=== PATIENT | female | born 1975 | race Caucasian/White ===

== ENCOUNTER 2016-12-20 22:54 | Emergency (ER) | payer MEDICAID ==
[2016-12-20] MEDS ORDERED: predniSONE 20 MG Tab PO ONE (23:22)
[2016-12-20] MEDS ORDERED: Acetaminophen/oxyCODONE 325-10 MG Tab PO ONE (23:22)
--- NOTE | 2016-12-20 23:28 | EDM.PDOC ---
ED HPI GENERAL MEDICAL PROBLEM - General Chief Complaint: Upper Extremity Injury/Pain Stated Complaint: PAIN ON RIGHT RIST Time Seen by Provider: 12/20/16 23:00 Source of Information: Reports: Patient - History of Present Illness INITIAL COMMENTS - FREE TEXT/NARRATIVE: she presents with a recent flare of her right wrist pain. She has a history of rheumatoid arthritis. She denies recent trauma She has tolerated prednisone well in the past. 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: 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 History: Reports: RA Neurological History: Reports: None Psychiatric History: Reports: None Endocrine/Metabolic History: Reports: None Hematologic History: Reports: None Immunologic History: Reports: Other (See Below) (rheumatoid arthritis) Oncologic (Cancer) History: Reports: None Dermatologic History: Reports: None - Past Surgical History HEENT Surgical History: Reports: None Cardiovascular Surgical History: Reports: None Respiratory Surgical History: Reports: None GI Surgical History: Reports: None Female Surgical History: Reports: None Endocrine Surgical History: Reports: None 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 Surgical History: Reports: None Social & Family History - Family History Family Medical History: Noncontributory - Tobacco Use Smoking Status *Q: Never Smoker Second Hand Smoke Exposure: No - Caffeine Use Caffeine Use: Reports: Coffee - Alcohol Use Days Per Week of Alcohol Use: 0 - Recreational Drug Use Recreational Drug Use: No Review of Systems - Review of Systems Review Of Systems: See Below Constitutional: Denies: Chills, Fever ED EXAM, GENERAL - Physical Exam Exam: See Below Free Text/Narrative:: alert appears uncomfortable right UE: finger deformities c/w rheumatoid arthritis; pain with motion of the wrist; tenderness of the wrist ; limited wrist. Course - Vital Signs Last Recorded V/S: Last Vital Signs Temp 97.4 F 12/20/16 23:07 Pulse 95 12/20/16 23:07 Resp 18 12/20/16 23:07 BP 144/86 H 12/20/16 23:07 Pulse Ox 99 12/20/16 23:07 - Orders/Labs/Meds Orders: Active Orders 24 hr Category Date Time Status Acetaminophen/oxyCODONE [Percocet 325-10 MG] Med 12/20/16 23:22 Once 1 tab PO ONETIME ONE predniSONE Med 12/20/16 23:22 Once 60 mg PO ONETIME ONE Departure - Departure Time of Disposition: 23:26 Disposition: Home, Self-Care 01 Condition: Fair Clinical Impression: Rheumatoid arthritis flare - Discharge Information Referrals: Eduar Zheng MD [Primary Care Provider] - Additional Instructions: percocet is for short term use as it may be habit forming, sedating and constipating do not use tylenol with percocet follow up with your doctor within two weeks. - My Orders Last 24 Hours: My Active Orders 12/20/16 23:22 Acetaminophen/oxyCODONE [Percocet 325-10 MG] 1 tab PO ONETIME ONE predniSONE 60 mg PO ONETIME ONE - Assessment/Plan Last 24 Hours: My Active Orders 12/20/16 23:22 Acetaminophen/oxyCODONE [Percocet 325-10 MG] 1 tab PO ONETIME ONE predniSONE 60 mg PO ONETIME ONE
[2016-12-21 00:01] VITALS: BP 135/77
== END 2016-12-20 23:58 | disposition home or self-care (01) ==
LOC: MW.ED 22:54
DX: M06.9 Rheumatoid arthritis, unspecified (principal)
CPT/HCPCS: 99283; A9270; 99282

== ENCOUNTER 2017-04-27 13:41 | Emergency (ER) | payer MEDICAID ==
--- NOTE | 2017-04-27 14:11 | EDM.PDOC ---
ED HPI GENERAL MEDICAL PROBLEM - General Chief Complaint: Upper Extremity Injury/Pain Stated Complaint: Christopher HART PAIN Time Seen by Provider: 04/27/17 14:07 Source of Information: Reports: Patient History Limitations: Reports: No Limitations - History of Present Illness INITIAL COMMENTS - FREE TEXT/NARRATIVE: History of present illness: [42-year-old female comes in complaining of left shoulder pain. Patient has known rheumatoid arthritis and she indicates she's having a flare. Patient did have a follow-up appointment with banquet server on call to address her methotrexate as well as potentially adding Remicade but unfortunately he point was in [place] and this is a provider that travels [id number] your to [place] as well as my not and she got his location confused. Discussed family medical leave as well as the need to attempt to get to see him in [place] an April as opposed to waiting for him to return to [place] in July.] Review of systems: As per history of present illness and below otherwise all systems reviewed and negative. Past medical history: As per history of present illness and as reviewed below otherwise noncontributory. Surgical history: As per history of present illness and as reviewed below otherwise noncontributory. Social history: No reported history of drug or alcohol abuse. Family history: As per history of present illness and as reviewed below otherwise noncontributory. Physical exam: HEENT: Atraumatic, normocephalic, pupils reactive, negative for conjunctival pallor or scleral icterus, mucous membranes moist, throat clear, neck supple, nontender, trachea midline. Lungs: Clear to auscultation, breath sounds equal bilaterally, chest nontender. Heart: S1S2, regular, negative for clicks, rubs, or JVD. Abdomen: Soft, nondistended, nontender. Negative for masses or hepatosplenomegaly. Negative for costovertebral tenderness. Pelvis: Stable nontender. Genitourinary: Deferred. Rectal: Deferred. Extremities: Atraumatic, negative for cords or calf pain. Neurovascular unremarkable. Neuro: Awake, alert, oriented. Cranial nerves II through XII unremarkable. Cerebellum unremarkable. Motor and sensory unremarkable throughout. Exam nonfocal. Global assessment is benign save subjective complaint of pain in left shoulder in conjunction with an underlying diagnosis of RA. Diagnostics: [] Therapeutics: [] Impression: [#1 RA flare #2 shoulder pain] Plan: [Prednisone, brief run of opiate analgesic] Definitive disposition and diagnosis as appropriate pending reevaluation and review of above. 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: 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 History: Reports: RA Neurological History: Reports: None Psychiatric History: Reports: None Endocrine/Metabolic History: Reports: None Hematologic History: Reports: None Immunologic History: Reports: Other (See Below) (rheumatoid arthritis) Oncologic (Cancer) History: Reports: None Dermatologic History: Reports: None - Past Surgical History HEENT Surgical History: Reports: None Cardiovascular Surgical History: Reports: None Respiratory Surgical History: Reports: None GI Surgical History: Reports: None Female Surgical History: Reports: None Endocrine Surgical History: Reports: None 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 Surgical History: Reports: None Social & Family History - Family History Family Medical History: Noncontributory - Tobacco Use Smoking Status *Q: Never Smoker Second Hand Smoke Exposure: No - Caffeine Use Caffeine Use: Reports: Coffee - Alcohol Use Days Per Week of Alcohol Use: 0 - Recreational Drug Use Recreational Drug Use: No Review of Systems - Review of Systems Review Of Systems: See Below (History of present illness) ED EXAM, GENERAL - Physical Exam Exam: See Below (See history of present illness) Departure - Departure Time of Disposition: 14:08 Disposition: Home, Self-Care 01 Condition: Good Clinical Impression: Rheumatoid arthritis flare - Discharge Information Prescriptions: Prednisone [IJD: Prednisone] 10 mg PO DAILY #30 tab Referrals: Eduar Zheng MD [Primary Care Provider] - Additional Instructions: The following information is given to patients seen in the emergency department who are being discharged to home. This information is to outline your options for follow-up care. We provide all patients seen in our emergency department with a follow-up referral. The need for follow-up, as well as the timing and circumstances, are variable depending upon the specifics of your emergency department visit. If you don't have a primary care physician on staff, we will provide you with a referral. We always advise you to contact your personal physician following an emergency department visit to inform them of the circumstance of the visit and for follow-up with them and/or the need for any referrals to a consulting specialist. The emergency department will also refer you to a specialist when appropriate. This referral assures that you have the opportunity for follow-up care with a specialist. All of these measure are taken in an effort to provide you with optimal care, which includes your follow-up. Under all circumstances we always encourage you to contact your private physician who remains a resource for coordinating your care. When calling for follow-up care, please make the office aware that this follow-up is from your recent emergency room visit. If for any reason you are refused follow-up, please contact the [facility] Emergency Department at and asked to speak to the emergency department charge nurse. Take medication as directed Follow-up with your rheumatoid doctor as discussed Return to ED as needed as discussed
[2017-04-27 14:16] VITALS: BP 150/93
== END 2017-04-27 14:35 | disposition home or self-care (01) ==
LOC: MW.ED 13:41
DX: M06.812 Other specified rheumatoid arthritis, left shoulder (principal); Z79.899 Other long term (current) drug therapy
CPT/HCPCS: 99283

== ENCOUNTER 2017-11-06 02:38 | Emergency (ER) | payer SELFPAY ==
[2017-11-06] MEDS ORDERED: Ketorolac 30 MG/ML SDV IM ONE (02:58)
--- NOTE | 2017-11-06 03:15 | EDM.PDOC ---
ED HPI GENERAL MEDICAL PROBLEM - General Chief Complaint: Lower Extremity Injury/Pain Stated Complaint: LEFT KNEE PAIN Time Seen by Provider: 11/06/17 03:15 - History of Present Illness INITIAL COMMENTS - FREE TEXT/NARRATIVE: HISTORY AND PHYSICAL: History of present illness: Patient is 42-year-old female presents with concern of left knee pain she has history of rheumatoid arthritis is currently on methotrexate she is followed by rheumatology and does have private medical doctors been no fever chills nausea vomiting or other complaints Review of systems: As per history of present illness and below otherwise all systems reviewed and negative. Past medical history: As per history of present illness and as reviewed below otherwise noncontributory. Surgical history: As per history of present illness and as reviewed below otherwise noncontributory. Social history: No reported history of drug or alcohol abuse. Family history: As per history of present illness and as reviewed below otherwise noncontributory. Physical exam: HEENT: Atraumatic, normocephalic, pupils reactive, negative for conjunctival pallor or scleral icterus, mucous membranes moist, throat clear, neck supple, nontender, trachea midline. Lungs: Clear to auscultation, breath sounds equal bilaterally, chest nontender. Heart: S1S2, regular, negative for clicks, rubs, or JVD. Abdomen: Soft, nondistended, nontender. Negative for masses or hepatosplenomegaly. Negative for costovertebral tenderness. Pelvis: Stable nontender. Genitourinary: Deferred. Rectal: Deferred. Extremities: Left knee has some small swelling noted there is no erythema no warmth joint sclerosis stable C medicine neurovascular exams unremarkable Neuro: Awake, alert, oriented. Cranial nerves II through XII unremarkable. Cerebellum unremarkable. Motor and sensory unremarkable throughout. Exam nonfocal. Diagnostics: X-ray left knee CBC CMP ESR and CRP Therapeutics: Toradol 30 mg IM Impression: #1 left knee pain with history of rheumatoid arthritis Definitive disposition and diagnosis as appropriate pending reevaluation and review of above. 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: 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 History: Reports: RA Neurological History: Reports: None Psychiatric History: Reports: None Endocrine/Metabolic History: Reports: None Hematologic History: Reports: None Immunologic History: Reports: Other (See Below) Oncologic (Cancer) History: Reports: None Dermatologic History: Reports: None - Infectious Disease History Infectious Disease History: Reports: Chicken Pox - Past Surgical History HEENT Surgical History: Reports: None Cardiovascular Surgical History: Reports: None Respiratory Surgical History: Reports: None GI Surgical History: Reports: None Female Surgical History: Reports: None Endocrine Surgical History: Reports: None 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 Surgical History: Reports: None Social & Family History - Family History Family Medical History: Noncontributory - Tobacco Use Smoking Status *Q: Never Smoker Second Hand Smoke Exposure: No - Caffeine Use Caffeine Use: Reports: Soda - Recreational Drug Use Recreational Drug Use: No Review of Systems - Review of Systems Review Of Systems: ROS reveals no pertinent complaints other than HPI. ED EXAM, GENERAL - Physical Exam Exam: See Below (See dictation) Course - Vital Signs Last Recorded V/S: Last Vital Signs Temp 36.0 C 11/06/17 02:43 Pulse 78 11/06/17 02:43 Resp 18 11/06/17 02:43 BP 130/86 11/06/17 02:43 Pulse Ox 94 L 11/06/17 02:43 - Orders/Labs/Meds Orders: Active Orders 24 hr Category Date Time Status Knee 3V Lt [CR] Stat Exams 11/06/17 02:58 Ordered CBC WITH AUTO DIFF [HEME] Stat Lab 11/06/17 02:58 Ordered COMPREHENSIVE METABOLIC PN,CMP [CHEM] Stat Lab 11/06/17 02:58 Ordered SEDIMENTATION RATE AUTO [HEME] Stat Lab 11/06/17 02:58 Ordered Meds: Medications Discontinued Medications Generic Name Dose Route Start Last Admin Trade Name Freq PRN Reason Stop Dose Admin Ketorolac Tromethamine 30 mg 11/06/17 02:58 Toradol IM 11/06/17 02:59 ONETIME ONE Departure - Departure Time of Disposition: 03:14 Disposition: Home, Self-Care 01 Preliminary Cause of *Q: Sepsis & Multi System Organ Failure Clinical Impression: Knee pain, Rheumatoid arthritis - Discharge Information Forms: ED Department Discharge Additional Instructions: The following information is given to patients seen in the emergency department who are being discharged to home. This information is to outline your options for follow-up care. We provide all patients seen in our emergency department with a follow-up referral. The need for follow-up, as well as the timing and circumstances, are variable depending upon the specifics of your emergency department visit. If you don't have a primary care physician on staff, we will provide you with a referral. We always advise you to contact your personal physician following an emergency department visit to inform them of the circumstance of the visit and for follow-up with them and/or the need for any referrals to a consulting specialist. The emergency department will also refer you to a specialist when appropriate. This referral assures that you have the opportunity for followup care with a specialist. All of these measure are taken in an effort to provide you with optimal care, which includes your followup. Under all circumstances we always encourage you to contact your private physician who remains a resource for coordinating your care. When calling for followup care, please make the office aware that this follow-up is from your recent emergency room visit. If for any reason you are refused follow-up, please contact the [facility] emergency department at and asked to speak to the emergency department charge nurse. 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
[2017-11-06 03:33] LABS: CHLORIDE,CL 103 mmol/L (98-107); SODIUM,NA 137 mmol/L (136-145)
[2017-11-06 04:49] VITALS: BP 118/77
--- NOTE | 2017-11-06 13:23 | CR ---
EXAM DATE: 11/06/17 PATIENT'S AGE: 42 Patient: LUKAS BARBOSA Facility: [place], [place] Site . Site : [id number] Study: XRay Knee Left [id number]/11/2018 3:35:14 AM Ordering Physician: Judi Mena Final Report: INDICATION: PAIN IN LEFT KNEE FOR 2 DAYS WITH NO KNOWN INJURY. PT STATES HX OF RA. LEFT KNEE No fracture, dislocation, or destructive lesion of bone is seen. No joint effusion is evident. No significant arthritic changes or soft tissue abnormalities are identified. IMPRESSION: Negative left knee radiographs. BETHANY HASKINS MD [employer] [facility] Dictated by: Ken Haskins MD @ 11/06/2017 03:39:37 (Electronic Signature) Report Signed by Proxy. [facility]
== END 2017-11-06 04:07 | disposition home or self-care (01) ==
LOC: MW.ED 02:38
DX: M06.9 Rheumatoid arthritis, unspecified (principal); M25.562 Pain in left knee
CPT/HCPCS: 36415; 73562; 80053; 85025; 85652; 96372; 99283; J1885

== ENCOUNTER 2018-12-05 18:34 | Emergency (ER) | payer MEDICAID ==
[2018-12-05] MEDS ORDERED: Ketorolac 60 MG/2 ML SDV IM ONE (19:15)
--- NOTE | 2018-12-05 19:20 | EDM.PDOC ---
ED HPI GENERAL MEDICAL PROBLEM - General Chief Complaint: Upper Extremity Injury/Pain Stated Complaint: FLAIR UP Time Seen by Provider: 12/05/18 19:10 - History of Present Illness INITIAL COMMENTS - FREE TEXT/NARRATIVE: HISTORY AND PHYSICAL: History of present illness: The patient is a 43-year-old female with a history of rheumatoid arthritis for which she follows with Dr. 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 She said she has not had a flareup in over 6 months and when she has a flareup usually her provider puts her on prednisone for a month. She is only taking Tylenol for the pain as she was advised not to take nonsteroidals regularly with her other medications. She has no other systemic complaints of fever chills nausea vomiting chest pain shortness of breath abdominal issues. Patient denies and denies any trauma to the hand. She says that when it flares up and get swollen and painful and it usually occurs when she overdoes it. 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 She is right-hand dominant. Her pain and swelling is only to the knuckles of her left hand and not to the wrist or forearm. The patient says the remainder of her joints are without swelling or pain is localized to the left hand Review of systems: As per history of present illness and below otherwise all systems reviewed and negative. Past medical history: As per history of present illness and as reviewed below otherwise noncontributory. Surgical history: As per history of present illness and as reviewed below otherwise noncontributory. Social history: No reported history of drug or alcohol abuse. Family history: As per history of present illness and as reviewed below otherwise noncontributory. Physical exam: General: Well-developed well-nourished female who is nontoxic and vital signs are reviewed by me HEENT: Atraumatic, normocephalic, negative for conjunctival pallor or scleral icterus, mucous membranes moist, throat clear, neck supple, nontender, trachea midline. Lungs: Clear to auscultation, breath sounds equal bilaterally, chest nontender. Heart: S1S2, regular rate and rhythm no overt murmurs Abdomen: Soft, nondistended, nontender. Pelvis: Deferred Genitourinary: Deferred. Rectal: Deferred. Extremities: Atraumatic, negative for cords or calf pain. Patient has full range of motion of all extremities and joints with the exception of the MCPs of the left hand 2 through 5. There is soft tissue swelling seen here and tenderness with palpation of the joint spaces but there is no warmth or erythema. The proximal wrist elbow and shoulder are without tenderness defects or soft tissue swelling. The patient can range of motion at the fingers but it is limited due to pain and swelling. Neurovascular unremarkable. Neuro: Awake, alert, oriented. Cranial nerves II through XII unremarkable. Cerebellum unremarkable. Motor and sensory unremarkable throughout. Exam nonfocal. Diagnostics: [] Therapeutics: Toradol IM The patient tells me that usually when she has a flareup she's put on prednisone for one month and I discussed with her that I cannot put her on medications for a month and that she will need to contact her reviewer sales. We will do a burst of steroids and I've advised her to call first thing Saturday morning to see whether or not he wants to continue the steroids and at what dosing and he prescribed further meds at that point. She states understanding. Impression: Rheumatoid arthritis flareup left hand Definitive disposition and diagnosis as appropriate pending reevaluation and review of above. 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: 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 History: Reports: RA Neurological History: Reports: None Psychiatric History: Reports: None Endocrine/Metabolic History: Reports: None Hematologic History: Reports: None Immunologic History: Reports: Other (See Below) Oncologic (Cancer) History: Reports: None Dermatologic History: Reports: None - Infectious Disease History Infectious Disease History: Reports: Chicken Pox - Past Surgical History HEENT Surgical History: Reports: None Cardiovascular Surgical History: Reports: None Respiratory Surgical History: Reports: None GI Surgical History: Reports: None Female Surgical History: Reports: None Endocrine Surgical History: Reports: None 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 Surgical History: Reports: None Social & Family History - Family History Family Medical History: Noncontributory - Tobacco Use Smoking Status *Q: Never Smoker - Caffeine Use Caffeine Use: Reports: Soda - Recreational Drug Use Recreational Drug Use: No Review of Systems - Review of Systems Review Of Systems: ROS reveals no pertinent complaints other than HPI. ED EXAM, GENERAL - Physical Exam Exam: See Below (See dictation) Course - Vital Signs Last Recorded V/S: Last Vital Signs Temp 36.9 C 12/05/18 18:45 Pulse 104 H 12/05/18 18:45 Resp 18 12/05/18 18:45 BP 147/95 H 12/05/18 18:45 Pulse Ox 94 L 12/05/18 18:45 - Orders/Labs/Meds Orders: Active Orders 24 hr Category Date Time Status Ketorolac [Toradol] Med 12/05/18 19:15 Once 60 mg IM ONETIME ONE Medication Orders Ketorolac Tromethamine (Toradol) 60 mg IM ONETIME ONE Stop: 12/05/18 19:16 Meds: Medications Generic Name Dose Route Start Last Admin Trade Name Armandoq PRN Reason Stop Dose Admin Ketorolac Tromethamine 60 mg 12/05/18 19:15 Toradol IM 12/05/18 19:16 ONETIME ONE Departure - Departure Time of Disposition: 19:19 Disposition: Home, Self-Care 01 Condition: Good Clinical Impression: Rheumatoid arthritis flare - Discharge Information Referrals: PCP,Unknown [Primary Care Provider] - Additional Instructions: The following information is given to patients seen in the emergency department who are being discharged to home. This information is to outline your options for follow-up care. We provide all patients seen in our emergency department with a follow-up referral. The need for follow-up, as well as the timing and circumstances, are variable depending upon the specifics of your emergency department visit. If you don't have a primary care physician on staff, we will provide you with a referral. We always advise you to contact your personal physician following an emergency department visit to inform them of the circumstance of the visit and for follow-up with them and/or the need for any referrals to a consulting specialist. The emergency department will also refer you to a specialist when appropriate. This referral assures that you have the opportunity for followup care with a specialist. All of these measure are taken in an effort to provide you with optimal care, which includes your followup. Under all circumstances we always encourage you to contact your private physician who remains a resource for coordinating your care. When calling for followup care, please make the office aware that this follow-up is from your recent emergency room visit. If for any reason you are refused follow-up, please contact the [facility] emergency department at and ask to speak to the emergency department charge nurse. [facility] Primary care- Internal Medicine and Family [address] [address] Ice and elevate the hand and use your home medication as previously and add the prednisone as prescribed. Use [id number] pain medications as you choose and contact your reviewer sales Saturday morning to discuss course of therapy over the next few weeks as we discussed. Return to ER as needed and as discussed - My Orders Last 24 Hours: My Active Orders 12/05/18 19:15 Ketorolac [Toradol] 60 mg IM ONETIME ONE - Assessment/Plan Last 24 Hours: My Active Orders 12/05/18 19:15 Ketorolac [Toradol] 60 mg IM ONETIME ONE
[2018-12-05 20:03] VITALS: BP 138/84; PULSE 93
== END 2018-12-05 20:02 | disposition home or self-care (01) ==
LOC: MW.ED 18:34
DX: M06.9 Rheumatoid arthritis, unspecified (principal); Z79.899 Other long term (current) drug therapy
CPT/HCPCS: 96372; 99283; J1885

== ENCOUNTER 2019-02-14 01:47 | Emergency (ER) | payer SELFPAY ==
[2019-02-14 02:00] VITALS: BP 149/80; PULSE 95
[2019-02-14] MEDS ORDERED: predniSONE 5 MG Tab PO STA (02:06)
[2019-02-14] MEDS ORDERED: Ketorolac 60 MG/2 ML SDV IM ONE (02:07)
--- NOTE | 2019-02-14 02:10 | EDM.PDOC ---
ED HPI GENERAL MEDICAL PROBLEM - General Chief Complaint: Lower Extremity Injury/Pain Stated Complaint: PT'S KNEES HURT Time Seen by Provider: 02/14/19 02:07 - History of Present Illness INITIAL COMMENTS - FREE TEXT/NARRATIVE: HISTORY AND PHYSICAL: History of present illness: Patient a 43-year-old white female with history of rheumatoid arthritis. Patient has an appointment with her primary medical doctor on Saturday no fever chills nausea vomiting or other complaints Review of systems: As per history of present illness and below otherwise all systems reviewed and negative. Past medical history: As per history of present illness and as reviewed below otherwise noncontributory. Surgical history: As per history of present illness and as reviewed below otherwise noncontributory. Social history: No reported history of drug or alcohol abuse. Family history: As per history of present illness and as reviewed below otherwise noncontributory. Physical exam: HEENT: Atraumatic, normocephalic, pupils reactive, negative for conjunctival pallor or scleral icterus, mucous membranes moist, throat clear, neck supple, nontender, trachea midline. Lungs: Clear to auscultation, breath sounds equal bilaterally, chest nontender. Heart: S1S2, regular, negative for clicks, rubs, or JVD. Abdomen: Soft, nondistended, nontender. Negative for masses or hepatosplenomegaly. Negative for costovertebral tenderness. Pelvis: Stable nontender. Genitourinary: Deferred. Rectal: Deferred. Extremities: Atraumatic, negative for cords or calf pain. Neurovascular unremarkable. Neuro: Awake, alert, oriented. Cranial nerves II through XII unremarkable. Cerebellum unremarkable. Motor and sensory unremarkable throughout. Exam nonfocal. Diagnostics: Deferred Therapeutics: Prednisone 5 mg by mouth Toradol 60 mg IM Impression: #1 acute rheumatoid arthritis exacerbation Definitive disposition and diagnosis as appropriate pending reevaluation and review of above. 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: 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 History: Reports: RA Neurological History: Reports: None Psychiatric History: Reports: None Endocrine/Metabolic History: Reports: None Hematologic History: Reports: None Immunologic History: Reports: Other (See Below) Oncologic (Cancer) History: Reports: None Dermatologic History: Reports: None - Infectious Disease History Infectious Disease History: Reports: Chicken Pox - Past Surgical History HEENT Surgical History: Reports: None Cardiovascular Surgical History: Reports: None Respiratory Surgical History: Reports: None GI Surgical History: Reports: None Female Surgical History: Reports: None Endocrine Surgical History: Reports: None 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 Surgical History: Reports: None Social & Family History - Family History Family Medical History: Noncontributory - Tobacco Use Smoking Status *Q: Never Smoker - Caffeine Use Caffeine Use: Reports: Soda - Recreational Drug Use Recreational Drug Use: No Review of Systems - Review of Systems Review Of Systems: ROS reveals no pertinent complaints other than HPI. ED EXAM, GENERAL - Physical Exam Exam: See Below (See dictation) Course - Vital Signs Last Recorded V/S: Last Vital Signs Temp 36.3 C 02/14/19 01:57 Pulse 95 02/14/19 01:57 Resp 18 02/14/19 01:57 BP 149/80 H 02/14/19 01:57 Pulse Ox 97 02/14/19 01:57 - Orders/Labs/Meds Orders: Active Orders 24 hr Category Date Time Status Ketorolac [Toradol] Med 02/14/19 02:07 Once 60 mg IM ONETIME ONE predniSONE Med 02/14/19 02:06 Stat 5 mg PO NOW STA Departure - Departure Time of Disposition: 02:09 Disposition: Home, Self-Care 01 Condition: Good Clinical Impression: Rheumatoid arthritis flare - Discharge Information Referrals: PCP,None [Primary Care Provider] - Additional Instructions: The following information is given to patients seen in the emergency department who are being discharged to home. This information is to outline your options for follow-up care. We provide all patients seen in our emergency department with a follow-up referral. The need for follow-up, as well as the timing and circumstances, are variable depending upon the specifics of your emergency department visit. If you don't have a primary care physician on staff, we will provide you with a referral. We always advise you to contact your personal physician following an emergency department visit to inform them of the circumstance of the visit and for follow-up with them and/or the need for any referrals to a consulting specialist. The emergency department will also refer you to a specialist when appropriate. This referral assures that you have the opportunity for followup care with a specialist. All of these measure are taken in an effort to provide you with optimal care, which includes your followup. Under all circumstances we always encourage you to contact your private physician who remains a resource for coordinating your care. When calling for followup care, please make the office aware that this follow-up is from your recent emergency room visit. If for any reason you are refused follow-up, please contact the [facility] emergency department at and asked to speak to the emergency department charge nurse . Prednisone as prescribed keep scheduled appointment with primary medical doctor on Saturday and return as needed as discussed - My Orders Last 24 Hours: My Active Orders 02/14/19 02:06 predniSONE 5 mg PO NOW STA 02/14/19 02:07 Ketorolac [Toradol] 60 mg IM ONETIME ONE - Assessment/Plan Last 24 Hours: My Active Orders 02/14/19 02:06 predniSONE 5 mg PO NOW STA 02/14/19 02:07 Ketorolac [Toradol] 60 mg IM ONETIME ONE
[2019-02-14] MEDS ORDERED: predniSONE 10 MG Tab PO STA (02:11)
== END 2019-02-14 02:25 | disposition home or self-care (01) ==
LOC: MW.ED 01:47
DX: M06.9 Rheumatoid arthritis, unspecified (principal)
CPT/HCPCS: 96372; 99283; A9270; J1885

== ENCOUNTER 2019-12-17 18:02 | Emergency (ER) | payer MEDICAID ==
[2019-12-17 18:17] VITALS: BP 158/81; PULSE 116
--- NOTE | 2019-12-17 18:29 | EDM.PDOC ---
ED HPI GENERAL MEDICAL PROBLEM - General Chief Complaint: Lower Extremity Injury/Pain Stated Complaint: arthritis flare up Time Seen by Provider: 12/17/19 18:14 - History of Present Illness INITIAL COMMENTS - FREE TEXT/NARRATIVE: History of present illness: Patient presents with bilateral knee pain. She denies any trauma no fevers no chills no injuries. She has had prior flares with her rheumatoid arthritis and is on multiple immunomodulators and immunological' for her arthritis. 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 She has been taking all of her medications as directed. Review of systems: As per history of present illness and below otherwise all systems reviewed and negative. Past medical history: As per history of present illness and as reviewed below otherwise noncontributory. Surgical history: As per history of present illness and as reviewed below otherwise noncontributory. Social history: No reported history of drug or alcohol abuse. Family history: As per history of present illness and as reviewed below otherwise noncontributory. Physical exam: HEENT: Atraumatic, normocephalic, pupils reactive, negative for conjunctival pallor or scleral icterus, mucous membranes moist, throat clear, neck supple, nontender, trachea midline. Lungs: Clear to auscultation, breath sounds equal bilaterally, chest nontender. Heart: S1S2, regular, negative for clicks, rubs, or JVD. Abdomen: Soft, nondistended, nontender. Negative for masses or hepatosplenomegaly. Negative for costovertebral tenderness. Pelvis: Stable nontender. Genitourinary: Deferred. Rectal: Deferred. Extremities: Atraumatic, negative for cords or calf pain. Neurovascular unremarkable. Neuro: Awake, alert, oriented. Cranial nerves II through XII unremarkable. Cerebellum unremarkable. Motor and sensory unremarkable throughout. Exam nonfocal. Diagnostics: [] Therapeutics: [] Impression: Rheumatoid arthritis flare [] Plan: Increase her prednisone with a 5-day burst of 60 mg of prednisone call the radio script writer in the morning for follow-up [] Definitive disposition and diagnosis as appropriate pending reevaluation and review of above. - Related Data Allergies Allergy/AdvReac Type Severity Reaction Status Date / Time No Known Allergies Allergy Verified 12/17/19 18:09 Home Meds: Home Meds Methotrexate 20 mg PO WEEKLY 12/20/16 [History] Etanercept [Enbrel] SQ WEEKLY 12/17/19 [History] predniSONE 60 mg PO WITHBREAKFAST 5 Days #15 tab 12/17/19 [Rx] predniSONE [Prednisone] 7.5 mg PO BID 12/17/19 [History] traMADol HCl [Tramadol HCl] 50 mg PO BID PRN 12/17/19 [History] Past Medical History - Past Health History Medical/Surgical History: Denies Medical/Surgical History HEENT History: Reports: None Cardiovascular History: Reports: None Respiratory History: Reports: None Gastrointestinal History: Reports: None Genitourinary History: Reports: None 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: 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 History: Reports: RA Other 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 History: bunion removal Neurological History: Reports: None Psychiatric History: Reports: None Endocrine/Metabolic History: Reports: None Hematologic History: Reports: None Immunologic History: Reports: Other (See Below) Oncologic (Cancer) History: Reports: None Dermatologic History: Reports: None - Infectious Disease History Infectious Disease History: Reports: Chicken Pox - Past Surgical History HEENT Surgical History: Reports: None Cardiovascular Surgical History: Reports: None Respiratory Surgical History: Reports: None GI Surgical History: Reports: None Female Surgical History: Reports: None Endocrine Surgical History: Reports: None 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 Surgical History: Reports: None Social & Family History - Family History Family Medical History: Noncontributory - Caffeine Use Caffeine Use: Reports: Coffee - Recreational Drug Use Recreational Drug Use: No Review of Systems - Review of Systems Review Of Systems: See Below ED EXAM, GENERAL - Physical Exam Exam: See Below Course - Vital Signs Last Recorded V/S: Last Vital Signs Temp 36.6 C 12/17/19 18:13 Pulse 116 H 12/17/19 18:13 Resp 20 12/17/19 18:13 BP 158/81 H 12/17/19 18:13 Pulse Ox 93 L 12/17/19 18:13 Departure - Departure Time of Disposition: 18:28 Disposition: Home, Self-Care 01 Condition: Good Clinical Impression: Rheumatoid arthritis flare, Knee pain - Discharge Information *PRESCRIPTION DRUG MONITORING PROGRAM REVIEWED*: Not Applicable *COPY OF PRESCRIPTION DRUG MONITORING REPORT IN PATIENT LUÍS: Not Applicable Prescriptions: predniSONE 60 mg PO WITHBREAKFAST 5 Days #15 tab Instructions: Chronic Knee Pain, Adult, Ngrx-ey-Pels, Arthritis, [id number] Referrals: Eduar Zheng MD [Primary Care Provider] - Additional Instructions: The following information is given to patients seen in the emergency department who are being discharged to home. This information is to outline your options for follow-up care. We provide all patients seen in our emergency department with a follow-up referral. The need for follow-up, as well as the timing and circumstances, are variable depending upon the specifics of your emergency department visit. If you don't have a primary care physician on staff, we will provide you with a referral. We always advise you to contact your personal physician following an emergency department visit to inform them of the circumstance of the visit and for follow-up with them and/or the need for any referrals to a consulting specialist. The emergency department will also refer you to a specialist when appropriate. This referral assures that you have the opportunity for follow-up care with a specialist. All of these measure are taken in an effort to provide you with optimal care, which includes your follow-up. Under all circumstances we always encourage you to contact your private physician who remains a resource for coordinating your care. When calling for follow-up care, please make the office aware that this follow-up is from your recent emergency room visit. If for any reason you are refused follow-up, please contact the [facility] Emergency Department at and asked to speak to the emergency department charge nurse. Sepsis Event Note (ED) - Evaluation Sepsis Screening Result: No Definite Risk - Focused Exam Vital Signs: Vital Signs Temp Pulse Resp BP Pulse Ox 12/17/19 18:13 36.6 C 116 H 20 158/81 H 93 L
== END 2019-12-17 18:36 | disposition home or self-care (01) ==
LOC: MW.ED 18:02
DX: M06.9 Rheumatoid arthritis, unspecified (principal)
CPT/HCPCS: 99282; 99283

== ENCOUNTER 2020-12-27 17:15 | Emergency (ER) | payer MEDICAID ==
[2020-12-27] MEDS ORDERED: Acetaminophen/HYDROcodone 325-5 MG Tab PO ONE (20:03)
[2020-12-27] MEDS ORDERED: predniSONE 20 MG Tab PO ONE (20:03)
--- NOTE | 2020-12-27 20:07 | EDM.PDOC ---
ED HPI GENERAL MEDICAL PROBLEM - General Chief Complaint: General Stated Complaint: ARTHRITIS FLARE UP Time Seen by Provider: 12/27/20 19:51 - History of Present Illness INITIAL COMMENTS - FREE TEXT/NARRATIVE: 45-year-old female with a history of rheumatoid arthritis presenting with approximately 4 to 5 days of worsening bilateral hand and knee pain consistent with prior rheumatoid arthritis flares. Patient is on a daily biologic as well as methotrexate. She has not had any steroids for the last couple weeks. She continues to follow with rheumatology. No fevers no neck pain or stiffness no other symptoms. Presentation is similar to multiple prior rheumatoid arthritis flares. In the past prednisone bursts have worked well for her. Patient presented today because the pain has been so bad over the last 2 days that she is been unable to sleep. The pain is primarily in the MCP joints of the bilateral hands as well as the knees. - Related Data Allergies Allergy/AdvReac Type Severity Reaction Status Date / Time No Known Allergies Allergy Verified 12/17/19 18:09 Home Meds: Home Meds Methotrexate 20 mg PO WEEKLY 12/20/16 [History] Hydrocodone/Acetaminophen [HYDROcodone-Acetaminophen 5-325 MG] 1 each PO TID PRN 3 Days #10 tab 12/27/20 [Rx] Tofacitinib Citrate [Xeljanz] 5 mg PO BID 12/27/20 [History] predniSONE 40 mg PO WITHBREAKFAST 5 Days #10 tab 12/27/20 [Rx] Past Medical History - Past Health History Medical/Surgical History: Denies Medical/Surgical History HEENT History: Reports: None Cardiovascular History: Reports: None Respiratory History: Reports: None Gastrointestinal History: Reports: None Genitourinary History: Reports: None 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: 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 History: Reports: RA Other 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 History: bunion removal Neurological History: Reports: None Psychiatric History: Reports: None Endocrine/Metabolic History: Reports: None Hematologic History: Reports: None Immunologic History: Reports: Other (See Below) Oncologic (Cancer) History: Reports: None Dermatologic History: Reports: None - Infectious Disease History Infectious Disease History: Reports: Chicken Pox - Past Surgical History HEENT Surgical History: Reports: None Cardiovascular Surgical History: Reports: None Respiratory Surgical History: Reports: None GI Surgical History: Reports: None Female Surgical History: Reports: None Endocrine Surgical History: Reports: None 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 Surgical History: Reports: None Social & Family History - Family History Family Medical History: No Pertinent Family History - Tobacco Use Tobacco Use Status *Q: Never Tobacco User Second Hand Smoke Exposure: No - Caffeine Use Caffeine Use: Reports: Coffee - Recreational Drug Use Recreational Drug Use: No ED ROS GENERAL - Review of Systems Review Of Systems: See Below Free Text/Narrative/Comment: General: No fever. Skin: No rash. Eyes: No vision problems. ENT: No sore throat. Neck: No neck stiffness. Respiratory: No shortness of breath. Cardiac: No chest pain. Gastrointestinal: No nausea, vomiting or abdominal pain. Urinary: No dysuria. 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: Per HPI Neurologic: No headache. ED EXAM, GENERAL - Physical Exam Exam: See Below Free Text/Narrative:: General Appearance: No acute distress, appears comfortable Skin: No rash HEENT: Normocephalic/atraumatic, sclera anicteric, mucous membranes moist 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: Bilateral hands with typical RA deformities no focal joint erythema range of motion appropriate Neurologic: Awake, alert, no obvious deficits, moving all extremities Psychiatric: Appropriate, cooperative Course - Vital Signs Last Recorded V/S: Last Vital Signs Temp 98.4 F 12/27/20 19:58 Pulse 108 H 12/27/20 19:58 Resp 20 12/27/20 19:58 BP 152/87 H 12/27/20 19:58 Pulse Ox 96 12/27/20 19:58 - Orders/Labs/Meds Meds: Medications Discontinued Medications Generic Name Dose Route Start Last Admin Trade Name Freq PRN Reason Stop Dose Admin Hydrocodone Bitart/Acetaminophen 1 tab 12/27/20 20:03 12/27/20 20:08 Acetaminophen/Hydrocodone 325-5 Mg Tab PO 12/27/20 20:04 1 tab ONETIME ONE Administration Prednisone 60 mg 12/27/20 20:03 12/27/20 20:09 Prednisone 20 Mg Tab PO 12/27/20 20:04 60 mg ONETIME ONE Administration Departure - Departure Time of Disposition: 20:03 Disposition: Home, Self-Care 01 Condition: Good Clinical Impression: Rheumatoid arthritis flare - Discharge Information *PRESCRIPTION DRUG MONITORING PROGRAM REVIEWED*: Not Applicable *COPY OF PRESCRIPTION DRUG MONITORING REPORT IN PATIENT LUÍS: Not Applicable Prescriptions: Hydrocodone/Acetaminophen [HYDROcodone-Acetaminophen 5-325 MG] 1 each PO TID PRN 3 Days #10 tab PRN Reason: Pain predniSONE 40 mg PO WITHBREAKFAST 5 Days #10 tab Instructions: Rheumatoid Arthritis, [id number] Referrals: Eduar Zheng MD [Primary Care Provider] - Forms: ED Department Discharge Additional Instructions: Tonight you been given a dose of prednisone and a dose of pain medication. Please collect your prescriptions tomorrow. Please take your next dose of pred nisone with lunch rather than with breakfast tomorrow. Following that please take it with breakfast each day. Please call your web site administrator tomorrow to let them know what is going on and to make sure that they do not want to modify the prednisone prescription. The following information is given to patients seen in the emergency department who are being discharged to home. This information is to outline your options for follow-up care. We provide all patients seen in our emergency department with a follow-up referral. The need for follow-up, as well as the timing and circumstances, are variable depending upon the specifics of your emergency department visit. If you don't have a primary care physician on staff, we will provide you with a referral. We always advise you to contact your personal physician following an emergency department visit to inform them of the circumstance of the visit and for follow-up with them and/or the need for any referrals to a consulting specialist. The emergency department will also refer you to a specialist when appropriate. This referral assures that you have the opportunity for follow-up care with a specialist. All of these measure are taken in an effort to provide you with optimal care, which includes your follow-up. Under all circumstances we always encourage you to contact your private physician who remains a resource for coordinating your care. When calling for follow-up care, please make the office aware that this follow-up is from your recent emergency room visit. If for any reason you are refused follow-up, please contact the [facility] at and asked to speak to the emergency department charge nurse. Sepsis Event Note (ED) - Evaluation Sepsis Screening Result: No Definite Risk - Focused Exam Vital Signs: Vital Signs Temp Pulse Resp BP Pulse Ox 12/27/20 19:58 98.4 F 108 H 20 152/87 H 96 - Assessment/Plan Assessment:: 45-year-old female presenting with signs and symptoms most consistent with rheumatoid arthritis flare no sign of septic arthritis no other systemic symptoms. Patient has done well with prednisone burst in the past. Will give initial dose of prednisone and dose of [place] here patient is not driving home. Additional 5 days of prednisone sent to the pharmacy along with a short [place] prescription. Patient will contact her rheumatology office tomorrow for a dditional guidance. Return precautions discussed and understood.
[2020-12-28 01:39] VITALS: BP 131/70; PULSE 89
== END 2020-12-27 20:15 | disposition home or self-care (01) ==
LOC: MW.ED 17:15
DX: M06.9 Rheumatoid arthritis, unspecified (principal)
CPT/HCPCS: 99283; A9270